=== PATIENT | male | born 1980 | race Caucasian/White ===

== ENCOUNTER 2018-10-08 04:38 | Inpatient (IN) | payer OTHER, SELFPAY ==
[2018-10-08] MEDS ORDERED: Fentanyl 100 MCG/2 ML VIAL ONE (04:54)
[2018-10-08 06:21] VITALS: BMI 51.6
[2018-10-08] MEDS ORDERED: Sodium Chloride 0.9% 1,000 ML IV SCH (06:22)
[2018-10-08] MEDS ORDERED: Ondansetron PF 4 MG/2 ML Vial IVP PRN ×2 (06:22→06:33)
[2018-10-08] MEDS ORDERED: Ondansetron ODT 4 MG TAB SL PRN (06:22)
[2018-10-08] MEDS ORDERED: Fentanyl 100 MCG/2 ML VIAL SLOW IVP PRN (06:24)
[2018-10-08] MEDS ORDERED: Ondansetron ODT 4 MG TAB PO PRN (06:33)
[2018-10-08] MEDS ORDERED: Morphine 4 MG/ML VIAL SLOW IVP PRN (06:33)
[2018-10-08] MEDS ORDERED: hydrALAZINE 20 MG/ML VIAL SLOW IVP PRN (06:33)
[2018-10-08] MEDS ORDERED: Morphine 2 MG/ML SYRINGE SLOW IVP PRN (06:33)
[2018-10-08] MEDS ORDERED: Labetalol HCl 100 MG/20 ML VIAL SLOW IVP PRN ×2 (06:33→11:35)
--- NOTE | 2018-10-08 06:49 | HP ---
PRIMARY CARE PHYSICIAN: The patient currently does not have a primary care physician. CHIEF COMPLAINT: Chest pain. HISTORY OF PRESENT ILLNESS: Mr. Holt is a pleasant 38-year-old gentleman, who has a history of hypertension, asthma, and obesity. He says that he was in his usual health until about few days ago, when he says that he was helping his eyrhxn-vs-sln lift a water heater onto a lift, when it started to slide off the lift and he tried to push it back up. He says the heater weighed about 800 pounds and he says after that he started having pain in his chest. When I asked him to point where in his chest it is hurting, it is actually lower in the epigastric region. He says that the pain has been more or less constant. It is worse when he tries to drink a Coke or a Sprite. He does have some nausea associated with it and has been having some loose stools as well. The pain, he rated it about 8/10 and it is nonradiating. He says taking a hot shower will sometimes help the pain. It got progressively worse, so he went to the emergency room in [place], where they did lab work and found that he had an elevated lipase and CT scan had evidence of pancreatic inflammation and he was transferred here for further treatment. The patient denies any heavy alcohol use. He denies any new medications, either prescription or [id number]. He is on lisinopril and says that the dose was increased, but he has been on lisinopril for a long time and he does admit to eating a lot of fried foods lately, but as far as solid foods causing the pain to be worse, it is hard to tell. REVIEW OF SYSTEMS: All systems were reviewed and are negative except that mentioned in the history of present illness. PAST MEDICAL HISTORY: Significant for asthma, obesity, obstructive sleep apnea, and hypertension. PAST SURGICAL HISTORY: He has had a right tibial plateau fracture surgery and tonsillectomy. SOCIAL HISTORY: He is . He has three children. He is currently unemployed. He smokes about 15 cigarettes a day and drinks socially. ALLERGIES: TO AMOXICILLIN AND LATEX, WHICH CAUSE A RASH. FAMILY HISTORY: Mother had hypertension. Father had an NH and diabetes. Grandfather had an NH. CURRENT MEDICATIONS: Include, 1. Hydrochlorothiazide 25 mg daily. 2. Lisinopril 20 mg daily. 3. Citalopram 40 mg a day. 4. Amlodipine 10 mg daily. 5. Ventolin inhaler 2 puffs q.6 as needed. PHYSICAL EXAMINATION: GENERAL: He is alert and oriented. He appears to be in no acute distress. He is morbidly obese. VITAL SIGNS: Blood pressure was 129/86, heart rate 85, respiratory rate of 18, temperature is 98.4, and O2 sats 98% on 2 L. HEENT: Pupils are equal, round, and reactive to light. Extraocular muscles are intact. His sclerae are anicteric. Throat, there is no erythema and no exudates. NECK: No adenopathy. No bruits. LUNGS: Essentially clear to auscultation. He did have a mild end-expiratory wheeze. No rhonchi. CARDIOVASCULAR: He has a normal S1 and S2. I did not appreciate an S3 or S4. No murmurs or clicks. No rubs. ABDOMEN: Soft. He has some fairly exquisite epigastric and right upper quadrant tenderness. He also has some voluntary guarding in that area. There was no evidence of any organomegaly. EXTREMITIES: There is no clubbing or cyanosis. No edema. No calf tenderness. No joint effusions. NEUROLOGICAL: Grossly nonfocal. SKIN/INTEGUMENT: There are no skin changes. No rash. DIAGNOSTIC STUDIES: LABORATORY RESULTS: The white blood cell count is 14.3, hemoglobin 16.1, hematocrit is 47.3, and platelet count is 297. Sodium 136, potassium 4.3, chloride is 101, CO2 is 26, BUN is 17, creatinine 1.14, and glucose is 110. The liver function tests are within normal limits including the total bilirubin. IMAGING STUDIES: Again, CT scan had findings consistent with pancreatitis. I am still awaiting the official read on this. ASSESSMENT: 1. This is a pleasant 38-year-old gentleman, who presents to the emergency room with epigastric tenderness and elevated lipase and therefore in acute pancreatitis. The etiology of which is unclear at this time. He will be placed on bowel rest and IV fluid resuscitation as well as IV analgesics and antiemetics. We will get a lipid profile to check his triglyceride level as well as an abdominal ultrasound in the event he has, via the CT scan, missed a stone. We will also look at his common duct size. Trend his electrolytes and renal function. 2. For hypertension, since he will be n.p.o., we will have him on IV p.r.n. medications. 3. Asthma. He will be on p.r.n. DuoNebs. Job ID: [id number]
--- NOTE | 2018-10-08 08:45 | ULT ---
RIGHT UPPER QUADRANT ULTRASOUND: HISTORY: Right upper quadrant pain. Recent abnormal CT scan. FINDINGS: The liver demonstrates homogeneous echotexture without focal mass or intrahepatic ductal dilatation. No gallstones or pericholecystic fluid is seen. The gallbladder wall is mildly thickened, measuring about 4 mm. The common duct measures 5 mm in diameter. The right kidney is normal. The pancreas i s not well visualized due to overlying bowel gas. No free fluid is seen in the Simmons pouch. Exam is limited due to patient body habitus. IMPRESSION: No evidence of cholelithiasis. POS: OFF
[2018-10-08] MEDS ORDERED: Enoxaparin Sodium 40 MG/0.4 ML SYRINGE SC SCH (09:00)
[2018-10-08] MEDS: Dextrose 5 %-0.45 % NaCl 1,000 ML IV SCH ×3 (09:08→21:20)
[2018-10-08] MEDS: Famotidine/PF 20 mg/2ml Vial SLOW IVP SCH ×2 (09:09→20:11)
[2018-10-08] MEDS: HYDROcodone/Acetaminophen 5/325 mg Tablet PO PRN ×2 (12:00→18:01)
[2018-10-08] MEDS: Senokot S 8.6-50 MG TAB PO SCH (20:11)
--- NOTE | 2018-10-08 22:42 | CON ---
DATE OF CONSULTATION: 10/08/2018 REASON FOR CONSULTATION: Pancreatitis. HISTORY OF PRESENT ILLNESS: Mr. Syed Holt is a 38-year-old man, admitted to the hospital overnight with 1st episode of acute pancreatitis. He reports symptoms have been going on for 2 to 3 days. He started having pain in the epigastrium which can get severe. It waxes and wanes. It is related to eating, any food or drink will make the pain flare up for a few hours, but then the pain will subside. There is only mild nausea associated with this. No vomiting. No change in bowel habits over the past couple of days. He cannot really recall any inciting event except that just before symptom onset he was lifting a very heavy water heater and it did fall on him on the chest. He was able to get out from under it very quickly. He has never had any prior history of pancreatitis, liver or gallbladder problems. He drinks alcohol, but only socially and none recently. He does smoke cigarettes. There is no family history of pancreatitis. Upon presentation, he was found to have an elevated lipase with normal LFTs. CT imaging did demonstrate some stranding around the head of the pancreas. No associated fluid collections or other abnormalities. Abdominal ultrasound shows no evidence of any gallstones and normal common bile duct. His vital signs are stable. He has been getting IV fluids and he received [place] which is moderately controlling his pain. He does actually feel hungry and has bowel sounds. REVIEW OF SYSTEMS: Full review of systems including constitutional, head, eyes, ears, nose, throat, GI, , cardiovascular, respiratory, musculoskeletal, neurologic systems is negative except as noted in the HPI. PAST MEDICAL HISTORY: Asthma, obesity, obstructive sleep apnea, hypertension, right tibial plateau fracture surgery, tonsillectomy. SOCIAL HISTORY: He smokes about 15 cigarettes a day. Alcohol use is social. FAMILY HISTORY: Negative for pancreatitis. ALLERGIES: AMOXICILLIN AND LATEX. HOME MEDICATIONS: 1. Hydrochlorothiazide 25 mg daily. 2. Lisinopril 20 mg daily. 3. Citalopram 40 mg daily. 4. Amlodipine 10 mg daily. 5. Ventolin inhaler two puffs every 6 hours as needed. PHYSICAL EXAMINATION: VITAL SIGNS: Temperature 97.5, pulse 64, blood pressure 123/77, 96% oxygen saturation on room air. GENERAL: Obese 38-year-old man, sitting up in bed comfortably, in no acute distress. SKIN: No jaundice. No rashes are palpable. EYES: No scleral icterus. Extraocular movements intact. ENT: Mucous membranes moist. No oral lesions. LYMPH: No submandibular or supraclavicular lymphadenopathy. Thyroid nontender to palpation. HEART: Regular rate and rhythm. LUNGS: Clear to auscultation bilaterally. ABDOMEN: Bowel sounds are active. The abdomen is soft. It is tender in the epigastrium. No guarding or rebound tenderness. EXTREMITIES: No peripheral edema. VESSELS: Radial pulses are 2+ bilaterally NEUROLOGIC: Cranial nerves 2 through 12 intact bilaterally. No focal deficits. LABORATORY STUDIES: WBC 14.3, hemoglobin 16.1, platelets 297. Sodium 136, potassium 4.3, BUN 17, creatinine 1.14. LFTs all normal with total bilirubin 0.8, alkaline phosphatase 66, AST 21, ALT 34, albumin 4.2, lipase is elevated to 2334. Triglyceride level is pending. No triglycerides were checked in May 2015 and were only 191. IMAGING STUDIES: Abdominal ultrasound shows no evidence of cholelithiasis. The common bile duct is normal in caliber at 5 mm. Gallbladder wall mildly thickened at 4 mm. The liver appears normal. CT of the abdomen and pelvis from last night demonstrated mild inhomogeneity of the fat surrounding the pancreas head. Spleen and liver are normal. Appendix is normal. No evidence of bowel obstruction or intraperitoneal free air or free fluid. ASSESSMENT AND PLAN: Acute pancreatitis, first episode, etiology unknown. I had a long discussion with the patient regarding acute pancreatitis. The etiology is unclear. Triglyceride level is pending, but triglycerides were not very significantly elevated back in 2014. It would be difficult to blame this on alcohol in his case. This does not appear to be biliary in origin, given the normal LFTs and no evidence of gallstones or biliary dilation on imaging. Usually pancreatitis secondary to trauma is more severe than this. Overall, given his stable hemodynamics status and favorable labs, I would call this a mild episode. Hopefully, he will have resolution within the next 2 to 3 days. I agree with supportive care already in place. We would continue n.p.o. status for at least the rest of the day, continue IV fluids, continue analgesics. If his pain is improving and pain medication requirements going down, and he remains hungry tomorrow, might consider advancing to clear liquids. In looking at the patient's home medications, he is on a thiazide diuretic. Thiazide diuretics do have an association with pancreatitis in some cases. I would recommend stopping his hydrochlorothiazide, switching to an alternative agent if needed. Thank you for the consultation. Please call anytime with questions or concerns. Job ID: [id number] MTDD
[2018-10-09] MEDS: Dextrose 5 %-0.45 % NaCl 1,000 ML IV SCH ×6 (00:27→18:28)
[2018-10-09 07:35] LABS: #Basophils 0.1 thou/uL (0.0-0.2); #Eosinphils 0.3 thou/uL (0.0-0.7); #Lymphocytes 1.7 thou/uL (1.20-3.40); #Monocytes 0.6 thou/uL (0.11-0.59); #Neutrophils 4.9 thou/uL (1.40-6.50); %Basophils 0.7 % (0.0-1.0); %Eosinophils 3.4 % (0.0-10.0); %Lymphocytes 22.2 % (21.0-51.0); %Monocytes 8.4 % (0.0-10.0); %Neutrophils 65.2 % (42.0-75.0); Hemoglobin 15.6 g/dL (14.0-18.0); Mean Corpuscular HGB CONC 33.8 g/dL (32.0-36.0); Mean Corpuscular Hemoglobin 30.9 pg (27.0-31.0); Mean Corpuscular Volume 91.4 fL (78.0-98.0); Mean Platelet Volume 6.8 fL (7.4-10.4); Platelet Count 303 thou/uL (130-400); RBC Distribution Width 11.9 % (11.5-14.5); Red Blood Cell (RBC) Count 5.05 mill/uL (4.70-6.10); White Blood Cell (WBC) Count 7.5 thou/uL (4.8-10.8)
[2018-10-09 07:55] LABS: Phosphorus 3.1 mg/dL (2.3-4.7)
[2018-10-09 07:56] LABS: ALT (SGPT) 29 U/L (8-55); AST (SGOT) 21 U/L (5-34); Albumin 3.9 g/dL (3.5-5.0); Alkaline Phosphatase 53 U/L (40-150); Anion Gap 9 mmol/L (10-20); BUN (Urea Nitrogen) 11 mg/dL (8.9-20.6); Bilirubin, Total 0.9 mg/dL (0.2-1.2); Calc. Creatinine Clearance 231 mL/min (70-130); Carbon Dioxide 29 mmol/L (22-29); Cardiac Risk 5.5 (Less than 4.5); Chloride 102 mmol/L (98-107); Cholesterol 199 mg/dl (< 200 Desired); Estimated GFR-MDRD 84; Globulin 2.5 g/dL (2.4-3.5); Glucose 120 mg/dL (70-105); HDL Cholesterol 36 mg/dL (>60 Neg Risk); LDL Cholesterol, Calculated 128 mg/dL; Lipase 733 U/L (8-78); Magnesium 2.3 mg/dL (1.6-2.6); Potassium 4.2 mmol/L (3.5-5.1); Protein, Total 6.4 g/dL (6.0-8.3); Sodium 136 mmol/L (136-145); Triglycerides 175 mg/dL (Less than 150)
[2018-10-09] MEDS: HYDROcodone/Acetaminophen 5/325 mg Tablet PO PRN (08:39)
[2018-10-09] MEDS: Senokot S 8.6-50 MG TAB PO SCH ×2 (08:40→20:33)
[2018-10-09] MEDS: Famotidine/PF 20 mg/2ml Vial SLOW IVP SCH ×2 (08:40→20:33)
--- NOTE | 2018-10-09 14:21 | PDOC.PN ---
- Subjective Encounter Start Date: 10/09/18 Encounter Start Time: 10:40 Pt seen for followup re: acute pancreatitis. feels better. - Objective Resuscitation Status - Order Detail: 10/08/18 06:14 Resuscitation Status Routine Resuscitation Status: FULL: Full Resuscitation Vital Signs & Weight: Vital Signs (12 hours) Temp Pulse Resp BP BP Pulse Ox 10/09/18 08:00 97.8 F 72 20 128/86 72 L 10/09/18 05:27 98.5 F 61 20 111/70 95 Weight Weight 360 lb 0.238 oz I&O: 10/08/18 10/09/18 10/10/18 06:59 06:59 06:59 Intake Total 1297 Balance 1297 Result Diagrams: 10/09/18 07:10 10/09/18 07:10 Phys Exam - Physical Examination Morbid obesity HEENT: moist MMs, sclera anicteric, oral pharynx no lesions, 2+ tonsils Neck: no nodes, no JVD, supple, full ROM Respiratory: clear to auscultation bilateral Cardiovascular: RRR, no rub S1, s2 Gastrointestinal: soft, no distention, positive bowel sounds Mild epigastric tenderness Neurological: moves all 4 limbs Psychiatric: normal affect, A&O x 3 Dx/Plan (1) Acute pancreatitis Code(s): K85.90 - ACUTE PANCREATITIS WITHOUT NECROSIS OR INFECTION, UNSP Status: Acute Comment: Improving, start clear fluid diet. Lipase 733 today (2) HTN (hypertension) Code(s): I10 - ESSENTIAL (PRIMARY) HYPERTENSION Status: Chronic Comment: controlled (3) Morbid obesity with BMI of 50.0-59.9, adult Code(s): E66.01 - MORBID (SEVERE) OBESITY DUE TO EXCESS CALORIES; Z68.43 - BODY MASS INDEX (BMI) 50-59.9, ADULT Status: Chronic Comment: consult dietitian - Plan * . Review of Systems - Review of Systems Constitutional: negative: fever, chills, sweats, weakness, malaise Respiratory: negative: Cough, Shortness of Breath, SOB with Excertion, Pleuritic Pain, Wheezing Cardiovascular: negative: chest pain, palpitations, orthopnea, paroxysmal nocturnal dyspnea, edema, light headedness Gastrointestinal: Abdominal Pain. negative: Nausea, Vomiting, Diarrhea, Constipation, Melena, Hematochezia Genitourinary: negative: Dysuria, Frequency, Incontinence, Hematuria, Retention - Medications/Allergies Allergies/Adverse Reactions: Allergies Allergy/AdvReac Type Severity Reaction Status Date / Time amoxicillin Allergy Hives Verified 10/08/18 10:56 Medications: Current Medications Hydrocodone Bitart/Acetaminophen ([place] 5/325) 1 tab PO Q6H PRN PRN Reason: Moderate Pain (4-6) Last Admin: 10/09/18 08:39 Dose: 1 tab Famotidine (Pepcid) 20 mg SLOW IVP Q12HR [facility] Last Admin: 10/09/18 08:40 Dose: 20 mg Hydralazine HCl (Apresoline) 10 mg SLOW IVP Q4H PRN PRN Reason: SBP > 180 and HR < 70 Dextrose/Sodium Chloride (D5 1/2 Ns) 1,000 mls @ 150 mls/hr IV .Q6H40M [facility] Last Admin: 10/09/18 12:51 Dose: Not Given Labetalol HCl (Normodyne) 10 mg SLOW IVP Q4H PRN PRN Reason: Systolic BP > 180 Morphine Sulfate (Morphine) 2 mg SLOW IVP Q4H PRN PRN Reason: Pain <6 Ondansetron HCl (Zofran Odt) 4 mg PO Q6H PRN PRN Reason: Nausea/Vomiting Ondansetron HCl (Zofran) 4 mg IVP Q6H PRN PRN Reason: Nausea/Vomiting Senna/Docusate Sodium (Senokot S) 1 tab PO BID [facility] Last Admin: 10/09/18 08:40 Dose: 1 tab
--- NOTE | 2018-10-09 14:43 | PRG ---
DATE OF SERVICE: 10/09/2018 SUBJECTIVE: Mr. Holt was out of his room during my rounds a couple of times this afternoon, so I was unable to examine him. I spoke with his nurse. The patient has been feeling better. He has remained hemodynamically stable. Epigastric pain still comes and goes, that was more mild than before. No vomiting. He was advanced to clear liquid diet earlier today and seemed to be tolerating that well. OBJECTIVE: VITAL SIGNS: Temperature 97.8, pulse 72, blood pressure 128/86, 96% oxygen saturation on room air. Physical examination, unable to examine today as the patient was out of the room. ASSESSMENT AND PLAN: Acute pancreatitis, first episode, unclear etiology. I note his triglyceride level is back and is not really elevated to a degree that would explain the pancreatitis. This attack remained idiopathic, clinically mild, and apparently improving. Continue with current supportive care. If his pain requirements are decreasing, his diet can continue to be advanced as tolerated. Please call anytime with questions or concerns. Job ID: [id number]
[2018-10-10] MEDS: Dextrose 5 %-0.45 % NaCl 1,000 ML IV SCH ×2 (00:52→06:38)
[2018-10-10] MEDS: Senokot S 8.6-50 MG TAB PO SCH (10:14)
[2018-10-10] MEDS: Famotidine/PF 20 mg/2ml Vial SLOW IVP SCH (10:14)
[2018-10-10 12:55] VITALS: TEMP 97.5
[2018-10-10 13:32] VITALS: BP 124/87
--- NOTE | 2018-10-10 18:56 | DIS ---
DATE OF ADMISSION: 10/08/2018 DATE OF DISCHARGE: 10/10/2018 PRIMARY CARE PROVIDER: None. DISCHARGE DIAGNOSES: 1. Acute pancreatitis. 2. Dyslipidemia. CONDITION OF PATIENT ON THE DAY OF DISCHARGE: Stable. I assessed Mr. Holt on the day of discharge. He denies any chest pain or shortness of breath. Vital signs are stable. S1 and S2 are heard, regular. Lungs are clear to auscultation bilaterally. Abdomen is soft, nontender, bowel sounds are heard. DISCHARGE MEDICATIONS: No change was made to his pre-admission home medications as dictated on Dr. Mercedes's history and physical note dated October 08, 2018. CONSULTATIONS DURING THIS HOSPITALIZATION: Gastroenterology, Albaro Guzman MD HOSPITAL COURSE: Mr. Holt is a pleasant 38-year-old gentleman, who was admitted to [facility] on October 08, 2018, for acute pancreatitis. Please refer to Dr. Mercedes's history and physical note dated October 08, 2018, for further details. He was seen by Gastroenterology Service. He was initially kept n.p.o., subsequently started on a diet. He improved clinically. His lipase improved as well. On the day of discharge, he has lipase of 694, decreased from 2334 on October 08, 2018. He also had fasting lipid profile, which showed triglycerides 175, cholesterol 199, LDL cholesterol 128, and HDL cholesterol 36. He is advised to follow up with his primary care provider for management of dyslipidemia. DISCHARGE DESTINATION: Home. TOTAL AMOUNT OF TIME SPENT COORDINATING THIS DISCHARGE: 33 minutes. Job ID: [id number]
== END 2018-10-10 13:18 | disposition home or self-care (01) | DRG 439 ==
LOC: ERS 04:38 → T4-B 05:11
PROVIDERS: ADMIT Internal Medicine; ATTEND Internal Medicine
DX: K85.90 Acute pancreatitis without necrosis or infection, unspecified (principal); Z68.43 Body mass index [BMI] 50.0-59.9, adult; J45.909 Unspecified asthma, uncomplicated; G47.33 Obstructive sleep apnea (adult) (pediatric); I10 Essential (primary) hypertension; E66.01 Morbid (severe) obesity due to excess calories; E78.5 Hyperlipidemia, unspecified; F17.210 Nicotine dependence, cigarettes, uncomplicated; Z90.89 Acquired absence of other organs; Z98.890 Other specified postprocedural states; Z88.1 Allergy status to other antibiotic agents; Z91.040 Latex allergy status
CPT/HCPCS: 36415; 76705; 80053; 80061; 83690; 83735; 84100; 85025; 93005; 94660; 96361; 96374; J2270; J3010; S0028

== ENCOUNTER 2018-12-23 03:58 | Emergency (ER) | payer SELFPAY ==
[2018-12-23 04:25] LABS: #Basophils 0.1 thou/uL (0.0-0.2); #Eosinphils 0.3 thou/uL (0.0-0.7); #Lymphocytes 1.5 thou/uL (1.20-3.40); #Monocytes 1.1 thou/uL (0.11-0.59); #Neutrophils 10.5 thou/uL (1.40-6.50); %Basophils 0.8 % (0.0-1.0); %Eosinophils 2.5 % (0.0-10.0); %Lymphocytes 11.3 % (21.0-51.0); %Neutrophils 77.4 % (42.0-75.0); Hemoglobin 17.2 g/dL (14.0-18.0); Mean Corpuscular HGB CONC 33.1 g/dL (32.0-36.0); Mean Corpuscular Hemoglobin 30.8 pg (27.0-31.0); Mean Corpuscular Volume 92.9 fL (78.0-98.0); Platelet Count 294 thou/uL (130-400); RBC Distribution Width 11.8 % (11.5-14.5); Red Blood Cell (RBC) Count 5.59 mill/uL (4.70-6.10); White Blood Cell (WBC) Count 13.6 thou/uL (4.8-10.8)
[2018-12-23 04:45] LABS: Bilirubin Negative (Negative); Blood, Urine Negative (Negative); Clarity CLEAR (Clear); Glucose, Urine (Dipstick) Negative (Negative); Leukocyte Negative (Negative); Nitrite Negative (Negative); Protein, Urine (Dipstick) Negative (Neg-Trace); Specific Gravity, Urine 1.025 (1.002-1.036); Urobilinogen 0.2 mg/dL (0.2-1.0); pH, Urine 5.5 (5.0-9.0)
[2018-12-23 04:47] LABS: ALT (SGPT) 39 U/L (8-55); AST (SGOT) 23 U/L (5-34); Albumin 4.3 g/dL (3.5-5.0); Alkaline Phosphatase 69 U/L (40-150); Anion Gap 13 mmol/L (10-20); BUN (Urea Nitrogen) 14 mg/dL (8.9-20.6); Bilirubin, Total 0.9 mg/dL (0.2-1.2); Calc. Creatinine Clearance 0 mL/min (70-130); Calcium 9.5 mg/dL (7.8-10.44); Carbon Dioxide 24 mmol/L (22-29); Chloride 104 mmol/L (98-107); Estimated GFR-MDRD 82; Globulin 2.9 g/dL (2.4-3.5); Glucose 119 mg/dL (70-105); Protein, Total 7.2 g/dL (6.0-8.3); Sodium 137 mmol/L (136-145)
[2018-12-23] MEDS ORDERED: Ondansetron ODT 4 MG TAB ONE (05:13)
[2018-12-23] MEDS ORDERED: Dicyclomine 20 MG TAB ONE (05:13)
[2018-12-23] MEDS ORDERED: Pantoprazole 40 MG VIAL ONE (05:14)
== END 2018-12-23 06:30 | disposition home or self-care (01) ==
LOC: ERS 03:58
DX: R10.13 Epigastric pain (principal); R19.7 Diarrhea, unspecified; J45.909 Unspecified asthma, uncomplicated; I10 Essential (primary) hypertension; F31.9 Bipolar disorder, unspecified; F41.9 Anxiety disorder, unspecified; F17.210 Nicotine dependence, cigarettes, uncomplicated; Z79.899 Other long term (current) drug therapy
CPT/HCPCS: 80053; 81003; 83690; 85025; 93005; 94760; 96361; 96374; C9113; Q0162

== ENCOUNTER 2019-02-12 08:36 | Emergency (ER) | payer SELFPAY | END 2019-02-12 09:40 | disposition home or self-care (01) | LOC: ERS 08:36 | DX: K64.4 Residual hemorrhoidal skin tags (principal); M67.48 Ganglion, other site; I10 Essential (primary) hypertension; J45.909 Unspecified asthma, uncomplicated; F31.9 Bipolar disorder, unspecified; F41.9 Anxiety disorder, unspecified; F17.210 Nicotine dependence, cigarettes, uncomplicated; Z79.899 Other long term (current) drug therapy | CPT/HCPCS: 99282 ==

== ENCOUNTER 2019-05-15 16:46 | Inpatient (IN) | payer SELFPAY ==
[2019-05-15] MEDS ORDERED: niCARdipine 20MG In NaCl 20 MG/200 ML BAG ONE (16:51)
[2019-05-15 17:02] LABS: #Eosinphils 0.3 thou/uL (0.0-0.7); #Lymphocytes 2.2 thou/uL (1.20-3.40); #Monocytes 0.8 thou/uL (0.11-0.59); #Neutrophils 6.2 thou/uL (1.40-6.50); %Basophils 0.4 % (0.0-1.0); %Eosinophils 2.9 % (0.0-10.0); %Lymphocytes 22.8 % (21.0-51.0); %Monocytes 8.9 % (0.0-10.0); Hemoglobin 16.3 g/dL (14.0-18.0); Mean Corpuscular HGB CONC 33.8 g/dL (32.0-36.0); Mean Corpuscular Hemoglobin 30.8 pg (27.0-31.0); Mean Corpuscular Volume 91.2 fL (78.0-98.0); Mean Platelet Volume 6.8 fL (7.4-10.4); Platelet Count 291 thou/uL (130-400); RBC Distribution Width 11.9 % (11.5-14.5); Red Blood Cell (RBC) Count 5.28 mill/uL (4.70-6.10); White Blood Cell (WBC) Count 9.5 thou/uL (4.8-10.8)
--- NOTE | 2019-05-15 17:07 | CT ---
EXAM: CT brain without contrast HISTORY: Right upper and lower extremity weakness. Stroke alert. COMPARISON: None TECHNIQUE: Multiple contiguous axial images were obtained and a CT of the brain without contrast. FINDINGS: A cavum septum pellucidum is incidentally seen. The brain is normal in morphology and atten uation without focal lesions or confluent areas of infarction. There is no evidence of hydrocephalus, intracranial hemorrhage, or extra-axial fluid collection. The calvarium and overlying soft tissues are unremarkable. The visualized paranasal sinuses and masto id air cells are well aerated. IMPRESSION: No evidence of acute intracranial abnormality Dr. Zamora notified of the findings at 5:05 PM on 05/15/2019.
[2019-05-15 17:10] LABS: INR-International Normal Ratio 0.9; PTT 27.2 SEC (22.9-36.1)
[2019-05-15 17:18] LABS: ALT (SGPT) 39 U/L (8-55); AST (SGOT) 27 U/L (5-34); Albumin 4.3 g/dL (3.5-5.0); Alkaline Phosphatase 66 U/L (40-110); Anion Gap 13 mmol/L (10-20); BUN (Urea Nitrogen) 15 mg/dL (8.9-20.6); Bilirubin, Total 0.9 mg/dL (0.2-1.2); CK (CPK) 473 U/L (30-200); Calc. Creatinine Clearance 0 mL/min (70-130); Calcium 9.1 mg/dL (7.8-10.44); Carbon Dioxide 24 mmol/L (22-29); Chloride 102 mmol/L (98-107); Estimated GFR-MDRD 58; Globulin 2.7 g/dL (2.4-3.5); Glucose 109 mg/dL (70-105); Potassium 4.2 mmol/L (3.5-5.1); Sodium 135 mmol/L (136-145)
--- NOTE | 2019-05-15 17:41 | CT ---
CT ANGIOGRAM NECK WITH CONTRAST CT ANGIOGRAM BRAIN WITH CONTRAST: DATE: 05/15/2019 HISTORY: 39-year-old male with acute stroke: Right upper extremity and right lower extremity weakness, and lef t facial droop. Dr. Soto verbally gave this level 1 stroke alert protocol report to Dr. Zamora at 5:36 PM on 05/15/20 19 TECHNIQUE: After IV contrast injection, arterial bolus chasing technique scan performed from AP window to vertex of head. Coronal and sagittal 3-D MIP reconstructions. FINDINGS: Bilateral MCAs: No M1 segment thrombus, occlusion, or high-grade stenosis. Bilateral ACAs: Normal A1 and A2 segments. Bilateral intracranial vertebrals: Normal. Bilateral production engineer: Normal. Bilateral superior cerebellars: Patent Basilar: Normal. Brachiocephalic: No stenosis. Right subclavian: Proximal normal. Mid and distal obscured by streak artifact from contrast bolus in adjacent subclavian vein. Left subclavian: Normal. Right common carotid: Normal. Left common carotid: Common origin with innominate. Otherwise normal. Right internal carotid: Essentially normal. Left internal carotid: Minimal plaque at origin. Otherwise normal. Cervical vertebrals: Bilaterally codominant. Essentially normal. IMPRESSION: Negative.
[2019-05-15] MEDS ORDERED: hydrALAZINE 20 MG/ML VIAL SLOW IVP PRN (20:15)
[2019-05-15] MEDS ORDERED: Communication Order-Pharmacy FS SCH (20:15)
[2019-05-15] MEDS ORDERED: Ondansetron PF 4 MG/2 ML Vial IVP PRN (20:15)
[2019-05-15] MEDS ORDERED: Ondansetron ODT 4 MG TAB PO PRN (20:15)
[2019-05-15] MEDS ORDERED: niCARdipine 25 MG in Sodium Chloride 0.9% 250 ML 240 ML IVPB PRN (20:15)
[2019-05-15] MEDS ORDERED: Labetalol HCl 100 MG/20 ML VIAL SLOW IVP PRN (20:15)
[2019-05-15] MEDS ORDERED: Acetaminophen 325 MG TAB PO PRN (20:15)
[2019-05-15 20:44] LABS: Troponin I 0.011 ng/mL (< 0.028)
[2019-05-15] MEDS: Sodium Chloride 0.45% 1,000 ML IV SCH (21:17)
[2019-05-15] MEDS: Atorvastatin Calcium 40 MG TAB PO SCH (21:48)
[2019-05-15 22:18] VITALS: BMI 49.5
--- NOTE | 2019-05-15 23:54 | HP ---
PRIMARY CARE PHYSICIAN: Walter Neumann MD. CHIEF COMPLAINT: Numbness and weakness on the right side. HISTORY OF PRESENT ILLNESS: Mr. Holt is a pleasant 39-year-old gentleman who has a history of hypertension as well as obesity. He was in his usual state of health until about 1:30 p.m. He says he was feeling fine and he went to sleep, then he awoke at about 4:30 and noticed some numbing and tingling on the right side of his face as well as his arm and leg. He says he also felt extremely dizzy and felt sick to his stomach. He called for his and asked her to take him to the hospital. He says he was able to manage to walk out to the car, but his noticed that the right leg was dragging. He also noted a severe headache as well as well as some chest tightness. When he arrived in the ER, they activated a stroke alert. He had a CT scan as well as a CT angiogram done emergently and CT scan was negative. His blood pressure was initially elevated, but then came down and he was given tPA and he is being admitted for further observation. The patient's symptoms have improved somewhat, his speech is less garbled and he has improved sensation in his right hand and otherwise no other complaints. The patient does admit that he had a similar episode about 3-4 years ago in which she had a facial droop as well as dizziness and tingling on the right side. He says he was given tPA at that time as well, but they could never find a reason for the episode. He had no residual in capacity. REVIEW OF SYSTEMS: All systems were reviewed and are negative except for that mentioned in the history of present illness. PAST MEDICAL HISTORY: Significant for obesity, obstructive sleep apnea. He uses CPAP. He believes it is 12.5 cm of water, hypertension, and possible previous CVA. PAST SURGICAL HISTORY: He has had a right tibial plateau fracture repair as well as a tonsillectomy. SOCIAL HISTORY: He is . He has 3 children. He admits to smoking a pack a day for the last 28 years and denies any illicit drug use. ALLERGIES: TO LATEX AND AMOXICILLIN, WHICH CAUSES A RASH. FAMILY HISTORY: Significant for hypertension in his mother. Father had diabetes and a heart attack. Grandfather had an CA. CURRENT MEDICATIONS: Include: 1. Hydrochlorothiazide 25 mg once daily. 2. Lisinopril 20 mg daily. 3. Citalopram 40 mg daily. 4. Amlodipine 10 mg daily. PHYSICAL EXAMINATION: GENERAL: He is alert and oriented. He appears to be in no acute distress. He is well developed and well nourished. VITAL SIGNS: Blood pressure initially was 190/107, heart rate 82, respiratory rate of 18, temperature was 98.1. HEENT: Pupils are equal, round, and reactive to light. Extraocular muscles are intact. Sclerae anicteric. Throat, there is no erythema, no exudates. NECK: No adenopathy, no bruits. LUNGS: Clear to auscultation. There is no wheezing, no rales, no rhonchi. CARDIOVASCULAR: He had a normal S1, S2. I did not appreciate an S3 or S4. No murmurs, clicks, no rubs. ABDOMEN: Obese, it is soft, nontender, and nondistended. Positive for bowel sounds. No rebound. No guarding. No organomegaly. EXTREMITIES: There is no clubbing, cyanosis. No edema. No joint effusions. NEUROLOGIC: His cranial nerves are intact. His muscle strength was 5/5 in both his upper and lower extremities. However, on the right, he did have a weaker housefellow strength, slight right arm drift. The right leg, he was able to lift it against resistance, but it was weaker than the left and the reflexes are EKG equivocal, difficult to elicit. SKIN AND INTEGUMENT: There were no skin changes and no rashes. LABORATORY DATA: Chemistry: His sodium is 135, potassium 4.2, chloride is 102, CO2 is 24, BUN of 15, creatinine of 1.37, glucose is 109. INR 0.9. The white blood cell count is 9.5, hemoglobin 16.3, hematocrit is 48.1, and platelet count was 291. IMAGING: CT of the brain was negative and he had a CT angiogram of the neck and [place], which was negative. EKG was sinus rhythm, the rate was 85. He had a nonspecific intraventricular conduction delay and a subtle Q-wave in lead 3. ASSESSMENT: This is a pleasant 39-year-old gentleman who presented with sudden onset of right-sided weakness and numbness as well as facial droop. He is status post tPA for presumed acute stroke. He will be admitted to the ICU. We will follow the post tPA protocol. Hold off on any aspirin or any blood draws in the 1st 24 hours. We will get an echocardiogram and also monitor him for signs of atrial fibrillation. We have already discussed smoking cessation. Neurology will be consulted and we will get an MRI in the a.m. and/or CT scan to rule out bleed or new stroke. 1. Hypertension. With regard to his blood pressure, we will try to keep his systolic blood pressure around in the 140-150 range. Restart his home medications as well as p.r.n. medication. 2. Obstructive sleep apnea. We will allow him to either use his own CPAP or continue CPAP with our machine with his home settings and further recommendations to follow. Job ID: [id number]
[2019-05-15 23:57] LABS: Troponin I Less than 0.010 ng/mL (< 0.028)
[2019-05-16 04:02] LABS: #Eosinphils 0.3 thou/uL (0.0-0.7); #Lymphocytes 1.8 thou/uL (1.20-3.40); #Monocytes 0.7 thou/uL (0.11-0.59); #Neutrophils 4.6 thou/uL (1.40-6.50); %Basophils 0.6 % (0.0-1.0); %Eosinophils 3.4 % (0.0-10.0); %Lymphocytes 24.4 % (21.0-51.0); %Neutrophils 62.5 % (42.0-75.0); Hemoglobin 16.1 g/dL (14.0-18.0); Mean Corpuscular HGB CONC 34.4 g/dL (32.0-36.0); Mean Corpuscular Hemoglobin 31.5 pg (27.0-31.0); Mean Corpuscular Volume 91.5 fL (78.0-98.0); Mean Platelet Volume 6.4 fL (7.4-10.4); Platelet Count 273 thou/uL (130-400); White Blood Cell (WBC) Count 7.4 thou/uL (4.8-10.8)
[2019-05-16 04:26] LABS: Anion Gap 14 mmol/L (10-20); BUN (Urea Nitrogen) 18 mg/dL (8.9-20.6); Calc. Creatinine Clearance 191 mL/min (70-130); Calcium 9.2 mg/dL (7.8-10.44); Carbon Dioxide 24 mmol/L (22-29); Cardiac Risk 4.5 (Less than 4.5); Chloride 102 mmol/L (98-107); Cholesterol 195 mg/dl (< 200 Desired); Estimated GFR-MDRD 71; Glucose 119 mg/dL (70-105); HDL Cholesterol 43 mg/dL (>60 Neg Risk); LDL Cholesterol, Calculated 89 mg/dL; Potassium 4.6 mmol/L (3.5-5.1); Sodium 135 mmol/L (136-145); Triglycerides 316 mg/dL (Less than 150)
[2019-05-16] MEDS: Sodium Chloride 0.45% 1,000 ML IV SCH (05:12)
--- NOTE | 2019-05-16 09:03 | PDOC.HOSPP ---
- Subjective Encounter Date: 05/16/19 Encounter Time: 09:01 Subjective: Mr. Holt was seen today in follow-up of acute CVA. says the weakness on the right side has improved. - Objective Vital Signs & Weight: Vital Signs (12 hours) Temp Pulse Pulse Ox 05/16/19 07:00 98.2 F 05/16/19 04:00 97.7 F 93 L 05/16/19 00:00 98.3 F 93 L 05/15/19 22:59 73 93 L Weight Weight 345 lb 3.902 oz Most Recent Monitor Data Heart Rate from ECG 75 NIBP 155/100 NIBP BP-Mean 118 Respiration from ECG 10 SpO2 92 I&O: 05/15/19 05/16/19 05/17/19 06:59 06:59 06:59 Intake Total 1493 Output Total 2450 700 Balance -957 -700 Result Diagrams: 05/16/19 03:57 05/16/19 03:57 Additional Labs: Accuchecks 05/15/19 16:53 POC Glucose 109 Hospitalist ROS - Medication Medications: Active Medications Generic Name Dose Route Start Last Admin Trade Name Freq PRN Reason Stop Dose Admin Atorvastatin Calcium 40 mg 05/16/19 21:00 05/15/19 21:48 Lipitor PO 40 mg HS ALTON Administration Miscellaneous Information 1 each 05/15/19 20:15 05/15/19 21:18 Communication Order-Pharmacy FS 05/16/19 20:16 Not Given NOW ALTON - Exam Eye: PERRL, anicteric sclera Heart: RRR, no murmur, no gallops, no rubs, normal peripheral pulses Respiratory: CTAB, no wheezes, no rales, no ronchi, normal chest expansion Gastrointestinal: soft, non-tender, non-distended, normal bowel sounds, no palpable masses, no hepatomegaly, no splenomegaly Extremities: no cyanosis, no clubbing, no edema Musculoskeletal: normal tone, normal strength, no muscle wasting Psychiatric: normal affect, normal behavior, A&O x 3 Hosp A/P (1) Acute CVA (cerebrovascular accident) Code(s): I63.9 - CEREBRAL INFARCTION, UNSPECIFIED Status: Acute (2) ALINA (obstructive sleep apnea) Code(s): G47.33 - OBSTRUCTIVE SLEEP APNEA (ADULT) (PEDIATRIC) Status: Chronic (3) HTN (hypertension) Code(s): I10 - ESSENTIAL (PRIMARY) HYPERTENSION Status: Chronic (4) Morbid obesity with BMI of 50.0-59.9, adult Code(s): E66.01 - MORBID (SEVERE) OBESITY DUE TO EXCESS CALORIES; Z68.43 - BODY MASS INDEX (BMI) 50.0-59.9, ADULT Status: Chronic (5) Tobacco abuse Code(s): Z72.0 - TOBACCO USE Status: Chronic - Plan * Acute CVA- with right sided weakness- this has resolved * He is post TPA- there are no clinical signs of bleeding * Will check an MRI, and Echo * HTN- blood pressure is a bit elevated- will re-start his home medications, and continue PRN meds * Await Neurology consult * Discussed smoking cessation- he tells me he doesn't plan to quit
[2019-05-16] MEDS ORDERED: Lisinopril 20 MG TAB PO SCH ×2 (09:10→10:00)
[2019-05-16] MEDS ORDERED: Amlodipine 10 MG TAB PO SCH ×2 (09:11→10:00)
[2019-05-16] MEDS ORDERED: Citalopram 20 MG TAB PO SCH (10:00)
--- NOTE | 2019-05-16 15:00 | CT ---
Exam: Head CT without contrast HISTORY: CVA. Status post TPA. COMPARISON: 05/15/2019 FINDINGS: Hemorrhage: No intraparenchymal hemorrhage or extra-axial hematoma. Brain parenchyma: Cortical patiño-white matter differentiation is preserved. No mass effect or midline shift. Basilar cisterns are patent. Ventricular system: Ventricles and sulci are patent and symmetric. Cavum septa pellucida is redemonst rated. Calvarium: Intact. Sinuses and mastoid air cells: Persistent opacification of the left mastoid air cells. IMPRESSION: 1. No acute intracranial process. 2. No significant interval change. 3. Persistent opacification of the left mastoid air cells. Correlate clinically. CODE T
[2019-05-16 16:26] VITALS: TEMP 98.5
[2019-05-16 19:41] LABS: INR-International Normal Ratio 0.9; PTT 27.8 SEC (22.9-36.1)
[2019-05-16 19:42] LABS: D-Dimer Test 0.55 *mcg/mL (0.27-0.43)
--- NOTE | 2019-05-16 21:01 | CON ---
DATE OF CONSULTATION: HISTORY OF PRESENT ILLNESS: Mr. Holt is a 39-year-old male who was admitted with right-sided paresthesias and he says right-sided weakness. It is interesting to note that he also says the right side of his face was weak. He has had no history of migraines. He has never had a vascular event, although he says he had very similar symptoms in the past and claims he was given tPA at another hospital for these symptoms. He subsequently has been admitted. CT angiogram is not showing any evidence of thromboembolic disease. Echocardiogram has nothing to suggest a vegetation or endocarditis. His left ventricle is normal. I was consulted because of his presence in the Critical Care Unit. PAST MEDICAL HISTORY: History of hypertension, sleep apnea. He says he is compliant with his CPAP and always wears it when he sleeps. He actually woke up from a nap during the day with these symptoms. PAST SURGICAL HISTORY: He has had a tibial plateau fracture repaired and a tonsillectomy. SOCIAL HISTORY: He has 3 children and is . Smokes a pack a day and does this for stress relief. He says he does not use drugs and does not drink. Has a fairly stressful job. ALLERGIES: HE REPORTS ALLERGIES TO AMOXICILLIN AND LATEX. FAMILY HISTORY: Positive for hypertension, heart disease and diabetes. REVIEW OF SYSTEMS: A 10-point review of systems is otherwise negative. He says he has tingling in the tips of his right fingers and that is all now. MEDICATIONS: Prior to admission, he is on 1. Hydrochlorothiazide. 2. Lisinopril. 3. Citalopram. 4. Amlodipine. PHYSICAL EXAMINATION: GENERAL: He is a large gentleman, in no distress. VITAL SIGNS: He is 5 feet 10 inches, weight 345 pounds, heart rate 76, respiratory rate is 18, blood pressure 149/89. HEAD AND NECK: Unremarkable. Extraocular movements are full. Tongue protrudes in the midline. He has facial symmetry. LUNGS: Clear. HEART: Regular rhythm. No S3. ABDOMEN: Soft and nontender. EXTREMITIES: Without clubbing, cyanosis, or edema. NEURO: Nonfocal. LABORATORY DATA: Labs have been reviewed. IMPRESSION: ? thrombotic event, improved with tPA. Symptoms on the right side of his face do not really go as much with his cerebrovascular accident. No identifiable lesion was found and this has happened before. I suppose this could be an atypical migraine or a stress-mediated symptom complex. I do think it is reasonable to order a hypercoagulable state just to make sure he did have an antithrombin III deficiency or something that would make him prone to arterial thrombosis. We will follow the other physicians caring for him. TIME SPENT: This is a 70-minute consult, 50% of the time was spent on the unit, coordinating care. Job ID: [id number]
[2019-05-17] MEDS ORDERED: PROVENTIL INHALER 6.7 G (200 INHALATIONS) INH SCH (07:00)
[2019-05-17] MEDS ORDERED: Aspirin 325 mg Enteric Coated Tablet PO SCH (09:00)
[2019-05-17] MEDS ORDERED: Hydrochlorothiazide 25 MG TAB PO SCH (09:00)
[2019-05-17] MEDS ORDERED: Citalopram 20 MG TAB PO SCH (09:00)
[2019-05-17 10:30] LABS: HEX PHOS LA Tube 1 56.4 SEC; HEX PHOS LA Tube 2 52.5 SEC; Hexagonal Phospholipid Neut 3.9 SEC (0-8.0); Protein C Activity 114 % (78-152)
[2019-05-17 11:33] LABS: Factor VIII Test 136.8 % ACTIVE (56-157)
[2019-05-18 17:23] LABS: Cardiolipin IgA Ab 3.2 APL-U/mL (<14 Negative); Cardiolipin IgG Ab Less than 0.5 GPL-U/mL (<10 Negative); EliA APS New Method **** NEW METHOD ****
== END 2019-05-16 20:05 | disposition left against medical advice (07) | DRG 62 ==
LOC: ERS 16:46 → CCU 19:47
PROVIDERS: ADMIT Internal Medicine; ATTEND Internal Medicine
DX: I63.9 Cerebral infarction, unspecified (principal); G81.91 Hemiplegia, unspecified affecting right dominant side; Z68.42 Body mass index [BMI] 45.0-49.9, adult; I10 Essential (primary) hypertension; E66.9 Obesity, unspecified; G47.33 Obstructive sleep apnea (adult) (pediatric); F17.210 Nicotine dependence, cigarettes, uncomplicated; G43.909 Migraine, unspecified, not intractable, without status migrainosus; E66.01 Morbid (severe) obesity due to excess calories; R29.810 Facial weakness; R40.2142 Coma scale, eyes open, spontaneous, at arrival to emergency department; R40.2252 Coma scale, best verbal response, oriented, at arrival to emergency department; R40.2362 Coma scale, best motor response, obeys commands, at arrival to emergency department; Z98.890 Other specified postprocedural states; Z90.89 Acquired absence of other organs; Z88.6 Allergy status to analgesic agent; Z91.040 Latex allergy status; Z79.899 Other long term (current) drug therapy
CPT/HCPCS: 36415; 36416; 70450; 70496; 70498; 80048; 80053; 80061; 81240; 81241; 82550; 83090; 84484; 85025; 85240; 85300; 85303; 85305; 85307; 85379; 85598; 85610; 85730; 86147; 93005; 93306; 94660; J2997

== ENCOUNTER 2019-08-09 19:19 | Emergency (ER) | payer SELFPAY ==
[2019-08-09] MEDS ORDERED: Ketorolac Tromethamine 60 MG/2 ML VIAL ONE (20:13)
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
== END 2019-08-09 21:49 | disposition home or self-care (01) ==
LOC: ERS 19:19
DX: S22.31XA Fracture of one rib, right side, initial encounter for closed fracture (principal); I10 Essential (primary) hypertension; F31.9 Bipolar disorder, unspecified; F41.9 Anxiety disorder, unspecified; F17.210 Nicotine dependence, cigarettes, uncomplicated; Z79.899 Other long term (current) drug therapy; W50.1XXA Accidental kick by another person, initial encounter
CPT/HCPCS: 71046; 96372; J1885

== ENCOUNTER 2021-02-25 01:44 | Inpatient (IN) | payer SELFPAY ==
[2021-02-25] MEDS ORDERED: Pantoprazole 40 MG VIAL ONE (02:17)
[2021-02-25] MEDS ORDERED: Famotidine/PF 20 mg/2ml Vial ONE ×2 (02:17→08:31)
[2021-02-25] MEDS ORDERED: Ondansetron PF 4 MG/2 ML Vial ONE ×2 (02:17→09:05)
[2021-02-25 02:21] LABS: #Basophils 0.1 thou/uL (0.0-0.2); #Eosinphils 0.3 thou/uL (0.0-0.7); #Lymphocytes 2.4 thou/uL (1.20-3.40); #Monocytes 0.8 thou/uL (0.11-0.59); #Neutrophils 5.7 thou/uL (1.40-6.50); %Basophils 0.7 % (0.0-1.0); %Eosinophils 3.4 % (0.0-10.0); %Lymphocytes 25.6 % (21.0-51.0); %Neutrophils 61.4 % (42.0-75.0); Hemoglobin 15.6 g/dL (14.0-18.0); Mean Corpuscular HGB CONC 34.3 g/dL (32.0-36.0); Mean Corpuscular Hemoglobin 31.8 pg (27.0-31.0); Mean Corpuscular Volume 92.7 fL (78.0-98.0); Mean Platelet Volume 6.9 fL (7.4-10.4); Platelet Count 298 thou/uL (130-400); RBC Distribution Width 11.9 % (11.5-14.5); Red Blood Cell (RBC) Count 4.91 mill/uL (4.70-6.10); White Blood Cell (WBC) Count 9.3 thou/uL (4.8-10.8)
[2021-02-25] MEDS ORDERED: Sucralfate 1 GM/10 ML UDCUP ONE (02:28)
[2021-02-25 02:41] LABS: ALT (SGPT) 43 U/L (8-55); AST (SGOT) 23 U/L (5-34); Albumin 3.9 g/dL (3.5-5.0); Alkaline Phosphatase 62 U/L (40-110); Anion Gap 11 mmol/L (10-20); BUN (Urea Nitrogen) 15 mg/dL (8.9-20.6); Bilirubin, Total 0.7 mg/dL (0.2-1.2); Calc. Creatinine Clearance 0 mL/min (70-130); Calcium 8.6 mg/dL (7.8-10.44); Carbon Dioxide 24 mmol/L (22-29); Chloride 103 mmol/L (98-107); Globulin 2.5 g/dL (2.4-3.5); Glucose 152 mg/dL (70-105); Lipase 61 U/L (8-78); Potassium 3.8 mmol/L (3.5-5.1); Protein, Total 6.4 g/dL (6.0-8.3); Sodium 134 mmol/L (136-145)
[2021-02-25] MEDS ORDERED: Morphine 4 MG/ML VIAL ONE (03:28)
[2021-02-25] MEDS ORDERED: hydrALAZINE 20 MG/ML VIAL SLOW IVP PRN (05:28)
[2021-02-25] MEDS ORDERED: Ondansetron PF 4 MG/2 ML Vial IVP PRN ×2 (05:30→13:29)
[2021-02-25] MEDS ORDERED: Acetaminophen 325 MG TAB PO PRN (05:30)
[2021-02-25] MEDS ORDERED: Ondansetron ODT 4 MG TAB SL PRN (05:30)
[2021-02-25] MEDS: Morphine 4 MG/ML VIAL SLOW IVP PRN ×6 (05:49→19:24)
[2021-02-25] MEDS: Sodium Chloride 0.9% 1,000 ML IV SCH ×2 (05:50→23:14)
[2021-02-25] MEDS ORDERED: metroNIDAZOLE 500 MG in Premix Bag 1 BAG IVPB SCH (06:00)
[2021-02-25] MEDS ORDERED: Non-Formulary Item 1 EACH (Albuterol Sulfate [Ventolin Hfa] 8 GM Hfa.Aer.Ad) INH PRN (07:19)
[2021-02-25 07:26] LABS: SARS-CoV-2 NAA Rapid Test Not Detected (NotDetected)
[2021-02-25] MEDS ORDERED: Lisinopril 20 MG TAB PO SCH (07:30)
[2021-02-25] MEDS ORDERED: Amlodipine 10 MG TAB PO SCH (07:30)
[2021-02-25] MEDS ORDERED: hydrALAZINE 20 MG/ML VIAL SLOW IVP SCH (07:30)
[2021-02-25] MEDS ORDERED: Albuterol 200 PUFF (6.7GM INHALER) INH PRN (07:35)
[2021-02-25] MEDS ORDERED: Iothalamate Meglumine 60% 50 ML VIAL FS ONE (08:31)
[2021-02-25] MEDS ORDERED: Lidocaine 1% w/Epinephrine 1:100K 20 ML VIAL ONE (08:31)
[2021-02-25] MEDS ORDERED: Fentanyl 100 MCG/2 ML VIAL ONE ×2 (08:31→11:24)
[2021-02-25] MEDS ORDERED: Bupivacaine 0.25% HCL 30 ML VIAL ONE (08:31)
[2021-02-25] MEDS ORDERED: SUGAMMADEX SODIUM 500 MG/5 ML VIAL ONE (08:31)
[2021-02-25] MEDS: Lisinopril 20 MG TAB PO SCH (09:00)
[2021-02-25] MEDS: Amlodipine 10 MG TAB PO SCH (09:00)
[2021-02-25] MEDS ORDERED: PROPOFOL 200 MG/20 ML VIAL ONE (09:05)
[2021-02-25] MEDS ORDERED: Metoclopramide HCl 10 MG/2 ML VIAL ONE (09:05)
[2021-02-25] MEDS ORDERED: Ketorolac Tromethamine 30 MG/ML VIAL ONE (09:05)
[2021-02-25] MEDS ORDERED: Dexamethasone 20 MG/5 ML VIAL ONE (09:05)
[2021-02-25] MEDS ORDERED: PHENYLEPHRINE-NS 100 MCG/ML 10 ML SYRINGE ONE (09:05)
[2021-02-25] MEDS ORDERED: Lidocaine 1% PF 5 ML VIAL ONE (09:05)
[2021-02-25] MEDS ORDERED: Rocuronium Bromide 10 MG/ML (10ML VIAL) ONE (09:05)
[2021-02-25] MEDS ORDERED: ePHEDrine 50 MG/ML VIAL ONE ×2 (09:05)
[2021-02-25] MEDS ORDERED: ePHEDrine Sulfate 50 MG/10 ML VIAL ONE (09:50)
[2021-02-25] MEDS ORDERED: Promethazine HCl 25 MG/ML VIAL IM PRN (11:20)
[2021-02-25] MEDS ORDERED: Ondansetron HCl/PF 4 MG/2 ML Vial IVP PRN (11:20)
[2021-02-25] MEDS ORDERED: Promethazine HCl 25 MG/ML VIAL IVPB PRN (11:20)
[2021-02-25] MEDS ORDERED: HYDROcodone/Acetaminophen 5/325 mg Tablet PO PRN (13:23)
[2021-02-25] MEDS ORDERED: traMADol HCl 50 MG TAB PO PRN ×2 (13:23)
[2021-02-25] MEDS ORDERED: Pantoprazole 40 MG VIAL IVP SCH (13:30)
[2021-02-25] MEDS: metroNIDAZOLE 500 MG in Premix Bag 1 BAG IVPB SCH (17:45)
[2021-02-25] MEDS: HYDROcodone/Acetaminophen 5/325 mg Tablet PO PRN (19:59)
[2021-02-25] MEDS ORDERED: Prazosin HCl 1 MG CAP PO SCH (21:00)
[2021-02-25] MEDS ORDERED: Atorvastatin Calcium 40 MG TAB PO SCH (21:00)
[2021-02-25] MEDS ORDERED: traZODone HCl 50 MG TAB PO SCH (21:00)
[2021-02-25] MEDS ORDERED: Aripiprazole 10 MG TAB PO SCH (21:00)
[2021-02-26] MEDS: metroNIDAZOLE 500 MG in Premix Bag 1 BAG IVPB SCH ×2 (00:09→05:44)
[2021-02-26] MEDS: Morphine 4 MG/ML VIAL SLOW IVP PRN ×2 (05:53→07:43)
[2021-02-26 06:12] LABS: #Lymphocytes 1.1 thou/uL (1.20-3.40); #Monocytes 0.9 thou/uL (0.11-0.59); #Neutrophils 11.8 thou/uL (1.40-6.50); %Eosinophils 0.2 % (0.0-10.0); %Monocytes 6.5 % (0.0-10.0); %Neutrophils 85.2 % (42.0-75.0); Hemoglobin 15.5 g/dL (14.0-18.0); Mean Corpuscular HGB CONC 32.8 g/dL (32.0-36.0); Mean Corpuscular Volume 94.7 fL (78.0-98.0); Mean Platelet Volume 7.1 fL (7.4-10.4); Platelet Count 296 thou/uL (130-400); RBC Distribution Width 12.1 % (11.5-14.5); White Blood Cell (WBC) Count 13.9 thou/uL (4.8-10.8)
[2021-02-26 06:31] LABS: ALT (SGPT) 93 U/L (8-55); AST (SGOT) 53 U/L (5-34); Albumin 3.9 g/dL (3.5-5.0); Alkaline Phosphatase 52 U/L (40-110); Anion Gap 12 mmol/L (10-20); BUN (Urea Nitrogen) 15 mg/dL (8.9-20.6); Bilirubin, Total 0.6 mg/dL (0.2-1.2); Calc. Creatinine Clearance 0 mL/min (70-130); Calcium 8.7 mg/dL (7.8-10.44); Carbon Dioxide 22 mmol/L (22-29); Chloride 105 mmol/L (98-107); Globulin 2.7 g/dL (2.4-3.5); Glucose 178 mg/dL (70-105); Potassium 4.9 mmol/L (3.5-5.1); Protein, Total 6.6 g/dL (6.0-8.3); Sodium 134 mmol/L (136-145)
[2021-02-26] MEDS: HYDROcodone/Acetaminophen 5/325 mg Tablet PO PRN (06:34)
[2021-02-26] MEDS: Lisinopril 20 MG TAB PO SCH (08:00)
[2021-02-26] MEDS: Amlodipine 10 MG TAB PO SCH (08:00)
[2021-02-26] MEDS ORDERED: Clopidogrel Bisulfate 75 MG TAB PO SCH (09:00)
[2021-02-26] MEDS ORDERED: Aspirin Chewable 81 MG TAB PO SCH (09:00)
[2021-02-26] MEDS ORDERED: Citalopram 20 MG TAB PO SCH (09:00)
[2021-02-26] MEDS ORDERED: Citalopram 10 MG TAB PO SCH (09:00)
[2021-02-26 10:54] VITALS: BP 121/67; TEMP 97.8
== END 2021-02-26 10:56 | disposition home or self-care (01) | DRG 418 ==
LOC: ERS 01:44 → SURG B 03:55
PROVIDERS: ADMIT Surgery; ATTEND Surgery
PROC: 0FT44ZZ Resection of Gallbladder, Percutaneous Endoscopic Approach (ICD-10-PCS; principal; 2021-02-25)
PROC: BF121ZZ Fluoroscopy of Gallbladder using Low Osmolar Contrast (ICD-10-PCS; 2021-02-25)
DX: K81.0 Acute cholecystitis (principal); Z68.43 Body mass index [BMI] 50.0-59.9, adult; E66.01 Morbid (severe) obesity due to excess calories; G47.33 Obstructive sleep apnea (adult) (pediatric); I10 Essential (primary) hypertension; F98.8 Other specified behavioral and emotional disorders with onset usually occurring in childhood and adolescence; J45.909 Unspecified asthma, uncomplicated; F17.210 Nicotine dependence, cigarettes, uncomplicated; G47.00 Insomnia, unspecified; F31.9 Bipolar disorder, unspecified; F41.1 Generalized anxiety disorder; E78.2 Mixed hyperlipidemia; F43.12 Post-traumatic stress disorder, chronic; E11.65 Type 2 diabetes mellitus with hyperglycemia; R09.02 Hypoxemia; Z88.1 Allergy status to other antibiotic agents; Z91.040 Latex allergy status; Z79.899 Other long term (current) drug therapy; Z86.73 Personal history of transient ischemic attack (TIA), and cerebral infarction without residual deficits
CPT/HCPCS: 36415; 71045; 76000; 76705; 80053; 83690; 85025; 88304; 93005; 96374; 96375; C9113; J0360; J1100; J1885; J1956; J2270; J2405; J2704; J2765; J3010; J3490; Q9961; S0020; S0028; U0002; U0005

== ENCOUNTER 2021-03-01 16:18 | Observation (INO) | payer SELFPAY ==
[~2021-03-01 16:18] MED LIST: Iopamidol-370 76% 500 ML 1 ML ONE
[2021-03-01 17:15] LABS: #Basophils 0.1 thou/uL (0.0-0.2); #Eosinphils 0.2 thou/uL (0.0-0.7); #Lymphocytes 2.4 thou/uL (1.20-3.40); #Monocytes 1.2 thou/uL (0.11-0.59); #Neutrophils 8.5 thou/uL (1.40-6.50); %Basophils 0.5 % (0.0-1.0); %Eosinophils 1.8 % (0.0-10.0); %Lymphocytes 19.5 % (21.0-51.0); %Monocytes 9.3 % (0.0-10.0); %Neutrophils 68.8 % (42.0-75.0); Hemoglobin 17.2 g/dL (14.0-18.0); Mean Corpuscular HGB CONC 34.2 g/dL (32.0-36.0); Mean Corpuscular Hemoglobin 31.3 pg (27.0-31.0); Mean Corpuscular Volume 91.6 fL (78.0-98.0); Mean Platelet Volume 7.1 fL (7.4-10.4); Platelet Count 365 thou/uL (130-400); RBC Distribution Width 11.8 % (11.5-14.5); White Blood Cell (WBC) Count 12.3 thou/uL (4.8-10.8)
[2021-03-01 17:39] LABS: ALT (SGPT) 111 U/L (8-55); AST (SGOT) 45 U/L (5-34); Albumin 4.3 g/dL (3.5-5.0); Alkaline Phosphatase 96 U/L (40-110); Anion Gap 12 mmol/L (10-20); BUN (Urea Nitrogen) 12 mg/dL (8.9-20.6); Bilirubin, Total 1.1 mg/dL (0.2-1.2); Calc. Creatinine Clearance 0 mL/min (70-130); Calcium 9.5 mg/dL (7.8-10.44); Carbon Dioxide 26 mmol/L (22-29); Chloride 101 mmol/L (98-107); Globulin 3.1 g/dL (2.4-3.5); Glucose 142 mg/dL (70-105); Potassium 4.2 mmol/L (3.5-5.1); Protein, Total 7.4 g/dL (6.0-8.3); Sodium 135 mmol/L (136-145)
[2021-03-01] MEDS ORDERED: Morphine 4 MG/ML VIAL ONE ×2 (18:46→22:08)
[2021-03-01] MEDS ORDERED: Ondansetron PF 4 MG/2 ML Vial ONE (18:46)
[2021-03-01] MEDS ORDERED: Ketorolac Tromethamine 30 MG/ML VIAL ONE (18:46)
[2021-03-01] MEDS ORDERED: Vancomycin 1 GM/200 ML BAG ONE (20:23)
[2021-03-01] MEDS ORDERED: metroNIDAZOLE 500 MG/100 ML BAG ONE (20:23)
[2021-03-02] MEDS: Lactated Ringer's 1,000 ML IV SCH ×2 (01:00→07:38)
[2021-03-02 01:25] LABS: Bilirubin Negative (Negative); Blood, Urine Negative (Negative); Clarity Clear (Clear); Glucose, Urine (Dipstick) Normal (Negative); Ketone, Urine Negative (Negative); Leukocyte Negative Leu/uL (Negative); Nitrite Negative (Negative); Protein, Urine (Dipstick) 20 mg/dL (Neg-Trace)
[2021-03-02 01:27] LABS: Specific Gravity, Urine 1.047 (1.002-1.036)
[2021-03-02] MEDS ORDERED: hydrALAZINE 20 MG/ML VIAL SLOW IVP PRN (01:31)
[2021-03-02] MEDS: Morphine 4 MG/ML VIAL SLOW IVP PRN ×5 (02:08→22:58)
[2021-03-02] MEDS ORDERED: Acetaminophen 650 MG Suppository PR PRN (04:51)
[2021-03-02] MEDS ORDERED: HYDROcodone/Acetaminophen 5/325 mg Tablet PO PRN (04:51)
[2021-03-02] MEDS ORDERED: Acetaminophen 325 MG TAB PO PRN (04:51)
[2021-03-02] MEDS ORDERED: metroNIDAZOLE 500 MG in Premix Bag 1 BAG IVPB SCH (05:00)
[2021-03-02 08:27] LABS: #Eosinphils 0.2 thou/uL (0.0-0.7); #Lymphocytes 1.6 thou/uL (1.20-3.40); #Monocytes 0.9 thou/uL (0.11-0.59); #Neutrophils 5.4 thou/uL (1.40-6.50); %Basophils 0.5 % (0.0-1.0); %Eosinophils 2.5 % (0.0-10.0); %Lymphocytes 19.8 % (21.0-51.0); %Monocytes 10.9 % (0.0-10.0); %Neutrophils 66.4 % (42.0-75.0); Hemoglobin 16.5 g/dL (14.0-18.0); Mean Corpuscular Hemoglobin 30.6 pg (27.0-31.0); Mean Corpuscular Volume 92.7 fL (78.0-98.0); Platelet Count 338 thou/uL (130-400); RBC Distribution Width 11.7 % (11.5-14.5); White Blood Cell (WBC) Count 8.1 thou/uL (4.8-10.8)
[2021-03-02 08:39] LABS: ALT (SGPT) 156 U/L (8-55); AST (SGOT) 101 U/L (5-34); Albumin 3.9 g/dL (3.5-5.0); Alkaline Phosphatase 142 U/L (40-110); Anion Gap 11 mmol/L (10-20); BUN (Urea Nitrogen) 13 mg/dL (8.9-20.6); Bilirubin, Total 1.4 mg/dL (0.2-1.2); Calc. Creatinine Clearance 239 mL/min (70-130); Calcium 9.1 mg/dL (7.8-10.44); Carbon Dioxide 27 mmol/L (22-29); Chloride 100 mmol/L (98-107); Glucose 112 mg/dL (70-105); Potassium 4.1 mmol/L (3.5-5.1); Protein, Total 6.9 g/dL (6.0-8.3); Sodium 134 mmol/L (136-145)
[2021-03-02] MEDS: Enoxaparin Sodium 40 MG/0.4 ML SYRINGE SC SCH (14:39)
[2021-03-02 20:27] VITALS: BMI 61.0
[2021-03-02] MEDS ORDERED: traZODone HCl 50 MG TAB PO SCH (21:00)
[2021-03-02] MEDS ORDERED: Prazosin HCl 1 MG CAP PO SCH (21:00)
[2021-03-02] MEDS ORDERED: Aripiprazole 10 MG TAB PO SCH (21:00)
[2021-03-03] MEDS: Morphine 4 MG/ML VIAL SLOW IVP PRN ×2 (02:57→06:52)
[2021-03-03 05:11] LABS: #Eosinphils 0.3 thou/uL (0.0-0.7); #Lymphocytes 1.9 thou/uL (1.20-3.40); #Monocytes 0.9 thou/uL (0.11-0.59); #Neutrophils 5.7 thou/uL (1.40-6.50); %Basophils 0.5 % (0.0-1.0); %Eosinophils 3.6 % (0.0-10.0); %Lymphocytes 21.1 % (21.0-51.0); %Monocytes 10.4 % (0.0-10.0); %Neutrophils 64.3 % (42.0-75.0); Hemoglobin 15.2 g/dL (14.0-18.0); Mean Corpuscular HGB CONC 32.5 g/dL (32.0-36.0); Mean Corpuscular Hemoglobin 30.3 pg (27.0-31.0); Mean Corpuscular Volume 93.4 fL (78.0-98.0); Mean Platelet Volume 7.2 fL (7.4-10.4); Platelet Count 308 thou/uL (130-400); RBC Distribution Width 11.6 % (11.5-14.5); Red Blood Cell (RBC) Count 5.01 mill/uL (4.70-6.10); White Blood Cell (WBC) Count 8.8 thou/uL (4.8-10.8)
[2021-03-03 05:31] LABS: ALT (SGPT) 127 U/L (8-55); AST (SGOT) 61 U/L (5-34); Albumin 3.7 g/dL (3.5-5.0); Alkaline Phosphatase 128 U/L (40-110); Anion Gap 10 mmol/L (10-20); BUN (Urea Nitrogen) 12 mg/dL (8.9-20.6); Bilirubin, Total 0.7 mg/dL (0.2-1.2); Calc. Creatinine Clearance 257 mL/min (70-130); Calcium 8.9 mg/dL (7.8-10.44); Carbon Dioxide 28 mmol/L (22-29); Chloride 102 mmol/L (98-107); Globulin 2.8 g/dL (2.4-3.5); Glucose 146 mg/dL (70-105); Potassium 4.2 mmol/L (3.5-5.1); Protein, Total 6.5 g/dL (6.0-8.3); Sodium 136 mmol/L (136-145)
[2021-03-03] MEDS ORDERED: Atorvastatin Calcium 40 MG TAB PO SCH (09:00)
[2021-03-03] MEDS ORDERED: Citalopram 20 MG TAB PO SCH (09:00)
[2021-03-03] MEDS ORDERED: Amlodipine 10 MG TAB PO SCH (09:00)
[2021-03-03] MEDS: Enoxaparin Sodium 40 MG/0.4 ML SYRINGE SC SCH (09:13)
[2021-03-03 11:54] VITALS: BP 152/94; TEMP 98.7
== END 2021-03-03 15:20 | disposition home or self-care (01) ==
LOC: ERS 16:18 → SURG A 22:02
PROVIDERS: ADMIT Student in an Organized Health Care Education/Training Program; ATTEND Student in an Organized Health Care Education/Training Program
DX: R10.11 Right upper quadrant pain (principal); R74.01 Elevation of levels of liver transaminase levels; F17.210 Nicotine dependence, cigarettes, uncomplicated; J45.909 Unspecified asthma, uncomplicated; I10 Essential (primary) hypertension; G47.33 Obstructive sleep apnea (adult) (pediatric); D72.829 Elevated white blood cell count, unspecified; E66.01 Morbid (severe) obesity due to excess calories; Z68.44 Body mass index [BMI] 60.0-69.9, adult; Z79.82 Long term (current) use of aspirin; Z79.899 Other long term (current) drug therapy; Z88.0 Allergy status to penicillin; Z91.040 Latex allergy status
CPT/HCPCS: 36415; 74177; 78226; 80053; 81003; 83605; 83690; 85025; 96365; 96367; 96372; 96375; 96376; A9537; G0378; J1650; J1885; J1956; J2270; J2405; J3370; Q9967

== ENCOUNTER 2021-05-09 07:24 | Inpatient (IN) | payer SELFPAY ==
[2021-05-09] MEDS ORDERED: Morphine 4 MG/ML VIAL ONE ×2 (07:42→11:55)
[2021-05-09] MEDS ORDERED: Ondansetron PF 4 MG/2 ML Vial ONE (07:42)
[2021-05-09 08:16] LABS: #Basophils 0.1 thou/uL (0.0-0.2); #Eosinphils 0.2 thou/uL (0.0-0.7); #Lymphocytes 2.2 thou/uL (1.20-3.40); #Monocytes 0.7 thou/uL (0.11-0.59); #Neutrophils 6.3 thou/uL (1.40-6.50); %Basophils 0.7 % (0.0-1.0); %Eosinophils 2.4 % (0.0-10.0); %Lymphocytes 22.6 % (21.0-51.0); %Monocytes 7.6 % (0.0-10.0); %Neutrophils 66.7 % (42.0-75.0); Mean Corpuscular HGB CONC 32.6 g/dL (32.0-36.0); Mean Corpuscular Hemoglobin 29.8 pg (27.0-31.0); Mean Corpuscular Volume 91.4 fL (78.0-98.0); Mean Platelet Volume 7.1 fL (7.4-10.4); Platelet Count 301 thou/uL (130-400); RBC Distribution Width 12.3 % (11.5-14.5); Red Blood Cell (RBC) Count 5.37 mill/uL (4.70-6.10); White Blood Cell (WBC) Count 9.5 thou/uL (4.8-10.8)
[2021-05-09 08:45] LABS: ALT (SGPT) 90 U/L (8-55); AST (SGOT) 44 U/L (5-34); Albumin 3.7 g/dL (3.5-5.0); Alkaline Phosphatase 75 U/L (40-110); Anion Gap 12 mmol/L (10-20); BUN (Urea Nitrogen) 9 mg/dL (8.9-20.6); Calc. Creatinine Clearance 0 mL/min (70-130); Calcium 9.1 mg/dL (7.8-10.44); Carbon Dioxide 26 mmol/L (22-29); Chloride 105 mmol/L (98-107); Globulin 2.7 g/dL (2.4-3.5); Glucose 155 mg/dL (70-105); Lipase 296 U/L (8-78); Potassium 4.1 mmol/L (3.5-5.1); Protein, Total 6.4 g/dL (6.0-8.3); Sodium 139 mmol/L (136-145)
[2021-05-09] MEDS ORDERED: Acetaminophen 650 MG Suppository PR PRN (11:42)
[2021-05-09] MEDS ORDERED: Acetaminophen 325 MG TAB PO PRN (11:42)
[2021-05-09] MEDS ORDERED: Ondansetron ODT 4 MG TAB PO PRN (11:42)
[2021-05-09] MEDS ORDERED: Ondansetron PF 4 MG/2 ML Vial IVP PRN (11:42)
[2021-05-09] MEDS ORDERED: Morphine 4 MG/ML VIAL SLOW IVP PRN (11:47)
[2021-05-09] MEDS ORDERED: Morphine 2 MG/ML VIAL SLOW IVP PRN ×2 (11:47)
[2021-05-09] MEDS: Lactated Ringer's 1,000 ML IV SCH ×2 (13:06→19:53)
[2021-05-09 13:17] VITALS: BMI 55.9
[2021-05-09] MEDS: Morphine 4 MG/ML VIAL SLOW IVP PRN ×3 (14:27→22:13)
[2021-05-09] MEDS ORDERED: Prazosin HCl 1 MG CAP PO PRN (15:02)
[2021-05-10 01:06] LABS: SARS-CoV-2 PCR by NAA Not Detected (NotDetected)
[2021-05-10] MEDS: Lactated Ringer's 1,000 ML IV SCH ×4 (02:54→21:46)
[2021-05-10] MEDS: Morphine 4 MG/ML VIAL SLOW IVP PRN ×4 (06:35→21:12)
[2021-05-10 06:59] LABS: #Eosinphils 0.3 thou/uL (0.0-0.7); #Lymphocytes 1.5 thou/uL (1.20-3.40); #Monocytes 0.6 thou/uL (0.11-0.59); #Neutrophils 3.8 thou/uL (1.40-6.50); %Basophils 0.7 % (0.0-1.0); %Eosinophils 4.4 % (0.0-10.0); %Lymphocytes 24.4 % (21.0-51.0); %Neutrophils 60.6 % (42.0-75.0); Hemoglobin 15.2 g/dL (14.0-18.0); Mean Corpuscular HGB CONC 34.2 g/dL (32.0-36.0); Mean Corpuscular Hemoglobin 31.6 pg (27.0-31.0); Mean Corpuscular Volume 92.2 fL (78.0-98.0); Mean Platelet Volume 6.8 fL (7.4-10.4); Platelet Count 247 thou/uL (130-400); RBC Distribution Width 12.1 % (11.5-14.5); Red Blood Cell (RBC) Count 4.81 mill/uL (4.70-6.10); White Blood Cell (WBC) Count 6.3 thou/uL (4.8-10.8)
[2021-05-10 07:15] LABS: ALT (SGPT) 159 U/L (8-55); AST (SGOT) 107 U/L (5-34); Albumin 3.5 g/dL (3.5-5.0); Alkaline Phosphatase 90 U/L (40-110); Bilirubin, Direct 0.6 mg/dL (0.1-0.3); Bilirubin, Total 1.3 mg/dL (0.2-1.2)
[2021-05-10 07:29] LABS: Anion Gap 12 mmol/L (10-20); BUN (Urea Nitrogen) 7 mg/dL (8.9-20.6); Calc. Creatinine Clearance 271 mL/min (70-130); Calcium 8.5 mg/dL (7.8-10.44); Carbon Dioxide 26 mmol/L (22-29); Chloride 103 mmol/L (98-107); Glucose 137 mg/dL (70-105); Potassium 4.2 mmol/L (3.5-5.1); Sodium 137 mmol/L (136-145)
[2021-05-10] MEDS: Citalopram 20 MG TAB PO SCH (08:23)
[2021-05-10] MEDS: Amlodipine 10 MG TAB PO SCH (08:23)
[2021-05-10] MEDS: Aripiprazole 10 MG TAB PO SCH (08:23)
[2021-05-10] MEDS: Enoxaparin Sodium 40 MG/0.4 ML SYRINGE SC SCH (08:24)
[2021-05-10] MEDS ORDERED: cloNIDine 0.1 MG TAB PO PRN (12:19)
[2021-05-10] MEDS ORDERED: hydrALAZINE 20 MG/ML VIAL SLOW IVP PRN (12:19)
[2021-05-10] MEDS: Pantoprazole 40 MG VIAL IVP SCH (13:06)
[2021-05-10] MEDS ORDERED: FLU VACC QS2021-22(6MOS UP)/PF 60 MCG/0.5 ML SYRINGE IM ONE (13:30)
[2021-05-11] MEDS: Morphine 4 MG/ML VIAL SLOW IVP PRN ×5 (00:32→21:06)
[2021-05-11] MEDS: Lactated Ringer's 1,000 ML IV SCH ×5 (05:25→23:02)
[2021-05-11] MEDS: Aripiprazole 10 MG TAB PO SCH (08:16)
[2021-05-11] MEDS: Citalopram 20 MG TAB PO SCH (08:17)
[2021-05-11] MEDS: Enoxaparin Sodium 40 MG/0.4 ML SYRINGE SC SCH (08:17)
[2021-05-11] MEDS: Amlodipine 10 MG TAB PO SCH (08:17)
[2021-05-11 09:15] LABS: #Eosinphils 0.3 thou/uL (0.0-0.7); #Lymphocytes 1.5 thou/uL (1.20-3.40); #Monocytes 0.6 thou/uL (0.11-0.59); #Neutrophils 3.9 thou/uL (1.40-6.50); %Basophils 0.6 % (0.0-1.0); %Eosinophils 4.1 % (0.0-10.0); %Lymphocytes 24.4 % (21.0-51.0); %Monocytes 9.6 % (0.0-10.0); %Neutrophils 61.3 % (42.0-75.0); Hemoglobin 16.4 g/dL (14.0-18.0); Mean Corpuscular HGB CONC 33.9 g/dL (32.0-36.0); Mean Corpuscular Hemoglobin 30.8 pg (27.0-31.0); Mean Corpuscular Volume 90.7 fL (78.0-98.0); Mean Platelet Volume 6.9 fL (7.4-10.4); Platelet Count 277 thou/uL (130-400); RBC Distribution Width 12.2 % (11.5-14.5); Red Blood Cell (RBC) Count 5.32 mill/uL (4.70-6.10); White Blood Cell (WBC) Count 6.3 thou/uL (4.8-10.8)
[2021-05-11 09:36] LABS: Anion Gap 11 mmol/L (10-20); BUN (Urea Nitrogen) 5 mg/dL (8.9-20.6); Calc. Creatinine Clearance 283 mL/min (70-130); Calcium 9.1 mg/dL (7.8-10.44); Carbon Dioxide 27 mmol/L (22-29); Chloride 101 mmol/L (98-107); Glucose 141 mg/dL (70-105); Sodium 135 mmol/L (136-145)
[2021-05-11 10:25] LABS: ALT (SGPT) 201 U/L (8-55); AST (SGOT) 129 U/L (5-34); Albumin 4.1 g/dL (3.5-5.0); Alkaline Phosphatase 113 U/L (40-110); Bilirubin, Direct 0.6 mg/dL (0.1-0.3); Bilirubin, Total 1.7 mg/dL (0.2-1.2); Protein, Total 6.7 g/dL (6.0-8.3)
[2021-05-11] MEDS: Pantoprazole 40 MG VIAL IVP SCH (12:56)
[2021-05-12] MEDS: Lactated Ringer's 1,000 ML IV SCH ×2 (01:14→06:25)
[2021-05-12] MEDS: Morphine 4 MG/ML VIAL SLOW IVP PRN ×3 (01:54→11:20)
[2021-05-12 06:38] LABS: ALT (SGPT) 182 U/L (8-55); AST (SGOT) 101 U/L (5-34); Albumin 3.9 g/dL (3.5-5.0); Alkaline Phosphatase 108 U/L (40-110); Anion Gap 14 mmol/L (10-20); BUN (Urea Nitrogen) 6 mg/dL (8.9-20.6); Bilirubin, Total 1.2 mg/dL (0.2-1.2); Calc. Creatinine Clearance 259 mL/min (70-130); Calcium 8.8 mg/dL (7.8-10.44); Carbon Dioxide 28 mmol/L (22-29); Chloride 100 mmol/L (98-107); Globulin 2.5 g/dL (2.4-3.5); Glucose 144 mg/dL (70-105); Lipase 46 U/L (8-78); Potassium 3.7 mmol/L (3.5-5.1); Protein, Total 6.4 g/dL (6.0-8.3); Sodium 138 mmol/L (136-145)
[2021-05-12] MEDS: Amlodipine 10 MG TAB PO SCH (07:46)
[2021-05-12] MEDS: Enoxaparin Sodium 40 MG/0.4 ML SYRINGE SC SCH (07:47)
[2021-05-12] MEDS: Aripiprazole 10 MG TAB PO SCH (07:47)
[2021-05-12] MEDS: Citalopram 20 MG TAB PO SCH (07:48)
[2021-05-12 11:28] VITALS: BP 157/104
[2021-05-12 12:08] VITALS: TEMP 99.1
[2021-05-12] MEDS: Pantoprazole 40 MG VIAL IVP SCH (12:38)
== END 2021-05-12 13:20 | disposition short-term general hospital (02) | DRG 439 ==
LOC: ERS 07:24 → SUATTDRO 07:24 → T4-A 09:09 → OBSVTOIN 05-10 16:50
PROVIDERS: ADMIT Family Medicine; ATTEND Family Medicine
DX: K85.90 Acute pancreatitis without necrosis or infection, unspecified (principal); F31.30 Bipolar disorder, current episode depressed, mild or moderate severity, unspecified; Z20.822 Contact with and (suspected) exposure to COVID-19; K76.0 Fatty (change of) liver, not elsewhere classified; E66.01 Morbid (severe) obesity due to excess calories; J45.909 Unspecified asthma, uncomplicated; K80.50 Calculus of bile duct without cholangitis or cholecystitis without obstruction; I10 Essential (primary) hypertension; E78.5 Hyperlipidemia, unspecified; F17.210 Nicotine dependence, cigarettes, uncomplicated; F43.10 Post-traumatic stress disorder, unspecified; Z68.43 Body mass index [BMI] 50.0-59.9, adult; Z90.49 Acquired absence of other specified parts of digestive tract; Z80.0 Family history of malignant neoplasm of digestive organs; Z88.1 Allergy status to other antibiotic agents; Z91.040 Latex allergy status; Z79.82 Long term (current) use of aspirin; Z79.51 Long term (current) use of inhaled steroids; Z79.899 Other long term (current) drug therapy
CPT/HCPCS: 36415; 80048; 80053; 80076; 83690; 84478; 85025; 94660; 96372; 96374; 96375; 96376; C9113; G0378; J1650; J2270; J2405; J7120; U0003; U0005

== ENCOUNTER 2021-05-19 14:40 | Emergency (ER) | payer SELFPAY ==
[2021-05-19] MEDS ORDERED: Morphine 4 MG/ML VIAL ONE (15:39)
[2021-05-19 15:56] LABS: #Basophils 0.1 thou/uL (0.0-0.2); #Eosinphils 0.1 thou/uL (0.0-0.7); #Lymphocytes 2.4 thou/uL (1.20-3.40); #Monocytes 0.8 thou/uL (0.11-0.59); #Neutrophils 6.9 thou/uL (1.40-6.50); %Basophils 0.8 % (0.0-1.0); %Eosinophils 1.4 % (0.0-10.0); %Lymphocytes 23.4 % (21.0-51.0); %Monocytes 7.5 % (0.0-10.0); %Neutrophils 66.9 % (42.0-75.0); Hemoglobin 17.1 g/dL (14.0-18.0); Mean Corpuscular HGB CONC 35.2 g/dL (32.0-36.0); Mean Corpuscular Hemoglobin 31.9 pg (27.0-31.0); Mean Corpuscular Volume 90.7 fL (78.0-98.0); Mean Platelet Volume 7.2 fL (7.4-10.4); Platelet Count 282 thou/uL (130-400); RBC Distribution Width 12.3 % (11.5-14.5); Red Blood Cell (RBC) Count 5.36 mill/uL (4.70-6.10); White Blood Cell (WBC) Count 10.3 thou/uL (4.8-10.8)
[2021-05-19 16:18] LABS: ALT (SGPT) 82 U/L (8-55); AST (SGOT) 37 U/L (5-34); Albumin 4.2 g/dL (3.5-5.0); Alkaline Phosphatase 89 U/L (40-110); Anion Gap 15 mmol/L (10-20); BUN (Urea Nitrogen) 13 mg/dL (8.9-20.6); Calc. Creatinine Clearance 0 mL/min (70-130); Calcium 9.8 mg/dL (7.8-10.44); Carbon Dioxide 23 mmol/L (22-29); Chloride 103 mmol/L (98-107); Globulin 2.5 g/dL (2.4-3.5); Glucose 161 mg/dL (70-105); Lipase 76 U/L (8-78); Potassium 4.3 mmol/L (3.5-5.1); Protein, Total 6.7 g/dL (6.0-8.3); Sodium 137 mmol/L (136-145)
[2021-05-19 16:44] LABS: Bilirubin Negative (Negative); Blood, Urine Negative (Negative); Clarity Clear (Clear); Glucose, Urine (Dipstick) Normal (Negative); Ketone, Urine Trace mg/dL (Negative); Leukocyte Negative Leu/uL (Negative); Nitrite Negative (Negative); Protein, Urine (Dipstick) 10 mg/dL (Neg-Trace); Specific Gravity, Urine 1.022 (1.002-1.036); Urobilinogen Normal mg/dL (Less than 2); pH, Urine 6.5 (5.0-9.0)
== END 2021-05-19 18:28 | disposition home or self-care (01) ==
LOC: ERS 14:40
DX: K76.0 Fatty (change of) liver, not elsewhere classified (principal); I10 Essential (primary) hypertension; F17.210 Nicotine dependence, cigarettes, uncomplicated; Z79.899 Other long term (current) drug therapy
CPT/HCPCS: 36415; 74177; 80053; 81003; 83690; 85025; 96374; J2270; Q9967

== ENCOUNTER 2021-06-03 16:09 | Emergency (ER) | payer SELFPAY ==
[2021-06-03] MEDS ORDERED: Ketorolac Tromethamine 30 MG/ML VIAL ONE (17:01)
[2021-06-03] MEDS ORDERED: Morphine 4 MG/ML VIAL ONE ×2 (17:01→21:14)
[2021-06-03 17:07] LABS: Bilirubin Negative (Negative); Blood, Urine Negative (Negative); Clarity Clear (Clear); Glucose, Urine (Dipstick) Normal (Negative); Ketone, Urine Negative (Negative); Leukocyte Negative Leu/uL (Negative); Nitrite Negative (Negative); Protein, Urine (Dipstick) 20 mg/dL (Neg-Trace); Specific Gravity, Urine 1.023 (1.002-1.036); Urobilinogen Normal mg/dL (Less than 2); pH, Urine 5.5 (5.0-9.0)
[2021-06-03 17:08] LABS: Amphetamine Not Detected (NotDetected); Barbiturates Screen Not Detected (NotDetected); Benzodiazepine Screen Not Detected (NotDetected); Cocaine Metabolite Screen Not Detected (NotDetected); Methadone Not Detected (NotDetected); Methamphetamine Not Detected (NotDetected); Opiate Screen Not Detected (NotDetected); Oxycodone Screen Not Detected (NotDetected); Phencyclidine (PCP) Not Detected (NotDetected); THC/Cannabinoid Screen Detected (NotDetected); Tricyclic Screen Not Detected (NotDetected)
[2021-06-03] MEDS ORDERED: Lorazepam 2 MG/ML VIAL ONE (23:24)
[2021-06-03] MEDS ORDERED: Haloperidol Lactate 5 MG/ML VIAL ONE (23:25)
[2021-06-03] MEDS ORDERED: diphenhydrAMINE 50 MG/ML VIAL ONE (23:25)
[2021-06-03] MEDS ORDERED: diphenhydrAMINE 50 MG CAP ONE (23:25)
== END 2021-06-04 01:35 | disposition home or self-care (01) ==
LOC: ERS 16:09
DX: R10.9 Unspecified abdominal pain (principal); F43.20 Adjustment disorder, unspecified; I10 Essential (primary) hypertension; E66.9 Obesity, unspecified; J45.909 Unspecified asthma, uncomplicated; G51.0 Bell's palsy; F17.210 Nicotine dependence, cigarettes, uncomplicated; Z79.899 Other long term (current) drug therapy; Z79.84 Long term (current) use of oral hypoglycemic drugs
CPT/HCPCS: 36415; 74177; 80306; 81003; 84443; 96374; 96375; 96376; J1200; J1630; J1885; J2060; J2270; Q9967

== ENCOUNTER 2021-08-21 16:38 | Emergency (ER) | payer OTHER ==
[2021-08-21] MEDS ORDERED: traMADol HCl 50 MG TAB ONE (20:31)
== END 2021-08-21 20:35 | disposition home or self-care (01) ==
LOC: ERS 16:38
DX: S83.91XA Sprain of unspecified site of right knee, initial encounter (principal); I10 Essential (primary) hypertension; J45.909 Unspecified asthma, uncomplicated; E11.9 Type 2 diabetes mellitus without complications; F17.210 Nicotine dependence, cigarettes, uncomplicated; X50.9XXA Other and unspecified overexertion or strenuous movements or postures, initial encounter
CPT/HCPCS: 99283

== ENCOUNTER 2021-08-31 23:45 | Inpatient (IN) | payer OTHER ==
[2021-09-01 00:49] VITALS: BMI 58.1
[2021-09-01] MEDS ORDERED: Aztreonam 2 GM in Sodium Chloride 0.9% 100 ML IVPB SCH (04:00)
[2021-09-01] MEDS ORDERED: Acetaminophen 325 MG TAB PO PRN (04:04)
[2021-09-01] MEDS ORDERED: Ondansetron PF 4 MG/2 ML Vial IVP PRN (04:04)
[2021-09-01] MEDS ORDERED: Dextrose 5% in Water 1,000 ML IV PRN (04:15)
[2021-09-01] MEDS ORDERED: Dextrose 50% Abboject 50 ML SYRINGE SLOW IVP PRN (04:15)
[2021-09-01] MEDS ORDERED: HumaLOG 300 UNITS/3 ML VIAL SC PRN (04:15)
[2021-09-01] MEDS: traMADol HCl 50 MG TAB PO PRN ×3 (04:22→17:54)
[2021-09-01 05:26] LABS: #Basophils 0.1 thou/uL (0.0-0.2); #Eosinphils 0.3 thou/uL (0.0-0.7); #Lymphocytes 3.7 thou/uL (1.20-3.40); #Monocytes 1.2 thou/uL (0.11-0.59); %Basophils 0.6 % (0.0-1.0); %Eosinophils 2.4 % (0.0-10.0); %Lymphocytes 27.7 % (21.0-51.0); %Neutrophils 60.3 % (42.0-75.0); Hemoglobin 15.9 g/dL (14.0-18.0); Mean Corpuscular Hemoglobin 30.9 pg (27.0-31.0); Mean Corpuscular Volume 93.6 fL (78.0-98.0); Mean Platelet Volume 6.7 fL (7.4-10.4); Platelet Count 295 thou/uL (130-400); RBC Distribution Width 12.2 % (11.5-14.5); Red Blood Cell (RBC) Count 5.14 mill/uL (4.70-6.10); White Blood Cell (WBC) Count 13.2 thou/uL (4.8-10.8)
[2021-09-01 05:53] LABS: Anion Gap 13 mmol/L (10-20); BUN (Urea Nitrogen) 16 mg/dL (8.9-20.6); Calc. Creatinine Clearance 240 mL/min (70-130); Carbon Dioxide 26 mmol/L (22-29); Chloride 102 mmol/L (98-107); Glucose 141 mg/dL (70-105); Lipase 21 U/L (8-78); Potassium 3.8 mmol/L (3.5-5.1); Sodium 137 mmol/L (136-145)
[2021-09-01] MEDS: methylPREDNISolone Sod Succ/PF 125 MG/2 ML VIAL IVP SCH ×3 (06:28→17:41)
[2021-09-01] MEDS: Amlodipine 10 MG TAB PO SCH (08:43)
[2021-09-01] MEDS: Citalopram 10 MG TAB PO SCH (08:43)
[2021-09-01] MEDS: Enoxaparin Sodium 40 MG/0.4 ML SYRINGE SC SCH (08:44)
[2021-09-01] MEDS: metFORMIN 500 MG TAB PO SCH ×2 (08:44→20:53)
[2021-09-01] MEDS ORDERED: Vancomycin 1 GM in Premix Bag 1 BAG IVPB SCH (09:00)
[2021-09-01] MEDS ORDERED: Famotidine/PF 20 mg/2ml Vial SLOW IVP SCH (09:00)
[2021-09-01] MEDS: HumaLOG 300 UNITS/3 ML VIAL SC PRN ×2 (11:46→17:43)
[2021-09-01] MEDS ORDERED: ALPRAZolam 1 MG TAB PO PRN (18:05)
[2021-09-01] MEDS: Morphine 4 MG/ML VIAL SLOW IVP PRN (20:54)
[2021-09-01] MEDS ORDERED: Prazosin HCl 1 MG CAP PO SCH (21:00)
[2021-09-01] MEDS ORDERED: traZODone HCl 50 MG TAB PO SCH (21:00)
[2021-09-02] MEDS: Morphine 4 MG/ML VIAL SLOW IVP PRN (06:28)
[2021-09-02] MEDS: HumaLOG 300 UNITS/3 ML VIAL SC PRN ×2 (06:29→12:21)
[2021-09-02 06:31] LABS: #Basophils 0.1 thou/uL (0.0-0.2); #Lymphocytes 1.3 thou/uL (1.20-3.40); #Monocytes 0.7 thou/uL (0.11-0.59); #Neutrophils 12.7 thou/uL (1.40-6.50); %Basophils 0.9 % (0.0-1.0); %Eosinophils 0.3 % (0.0-10.0); %Lymphocytes 8.8 % (21.0-51.0); %Monocytes 4.4 % (0.0-10.0); %Neutrophils 85.6 % (42.0-75.0); Hemoglobin 16.7 g/dL (14.0-18.0); Mean Corpuscular HGB CONC 33.4 g/dL (32.0-36.0); Mean Corpuscular Hemoglobin 31.1 pg (27.0-31.0); Mean Corpuscular Volume 93.1 fL (78.0-98.0); Mean Platelet Volume 6.9 fL (7.4-10.4); Platelet Count 287 thou/uL (130-400); RBC Distribution Width 12.2 % (11.5-14.5); Red Blood Cell (RBC) Count 5.39 mill/uL (4.70-6.10); White Blood Cell (WBC) Count 14.8 thou/uL (4.8-10.8)
[2021-09-02 06:53] LABS: Anion Gap 16 mmol/L (10-20); BUN (Urea Nitrogen) 13 mg/dL (8.9-20.6); Calc. Creatinine Clearance 263 mL/min (70-130); Calcium 9.6 mg/dL (7.8-10.44); Carbon Dioxide 20 mmol/L (22-29); Chloride 101 mmol/L (98-107); Glucose 203 mg/dL (70-105); Potassium 5.2 mmol/L (3.5-5.1); Sodium 132 mmol/L (136-145)
[2021-09-02] MEDS ORDERED: predniSONE 20 MG TAB PO SCH (08:00)
[2021-09-02 08:14] VITALS: BP 126/83; TEMP 97.7
[2021-09-02] MEDS: Citalopram 10 MG TAB PO SCH (08:42)
[2021-09-02] MEDS: Amlodipine 10 MG TAB PO SCH (08:42)
[2021-09-02] MEDS: metFORMIN 500 MG TAB PO SCH (08:42)
[2021-09-02] MEDS: Enoxaparin Sodium 40 MG/0.4 ML SYRINGE SC SCH (08:43)
[2021-09-02] MEDS ORDERED: Nicotine 21 MG PATCH TD SCH (09:00)
== END 2021-09-02 14:40 | disposition home or self-care (01) | DRG 202 ==
LOC: T4-B 09-01 00:24 → OBSVTOIN 09-01 04:28
PROVIDERS: ADMIT Internal Medicine; ATTEND Internal Medicine
DX: J45.31 Mild persistent asthma with (acute) exacerbation (principal); Z68.43 Body mass index [BMI] 50.0-59.9, adult; I10 Essential (primary) hypertension; E78.5 Hyperlipidemia, unspecified; E11.9 Type 2 diabetes mellitus without complications; G47.33 Obstructive sleep apnea (adult) (pediatric); F43.10 Post-traumatic stress disorder, unspecified; Z20.822 Contact with and (suspected) exposure to COVID-19; F17.210 Nicotine dependence, cigarettes, uncomplicated; J20.9 Acute bronchitis, unspecified; F31.70 Bipolar disorder, currently in remission, most recent episode unspecified; E66.01 Morbid (severe) obesity due to excess calories; N40.0 Benign prostatic hyperplasia without lower urinary tract symptoms; Z88.1 Allergy status to other antibiotic agents; Z91.040 Latex allergy status; Z91.048 Other nonmedicinal substance allergy status; Z79.51 Long term (current) use of inhaled steroids; Z79.899 Other long term (current) drug therapy; Z90.49 Acquired absence of other specified parts of digestive tract
CPT/HCPCS: 36415; 36416; 80048; 83690; 85025; 87070; 87205; 94640; 94660; J1650; J1815; J1956; J2270; J2930; J7512; J7620; S0028